=== PATIENT | male | born 1985 | race Caucasian/White ===

== ENCOUNTER 2020-07-07 10:53 | Outpatient (NON) | payer BC, OTHER, SELFPAY ==
[2020-07-07 22:00] LABS: SARS-CoV-2 RNA PCR Negative
== END 2020-07-07 10:54 ==
PROVIDERS: PCP Family Medicine; Visit Provider Nurse Practitioner Family
DX: J02.9 Acute pharyngitis, unspecified (principal); Z20.828 Contact with and (suspected) exposure to other viral communicable diseases
CPT/HCPCS: 87635; C9803; U0003

== ENCOUNTER 2023-05-24 04:18 | Emergency (ER) | payer BC, SELFPAY ==
--- NOTE | ~2023-05-24 | CT_ITS ---
CT of the Abdomen and Pelvis: Indication: Abdominal pain Technique: 2.5 mm axial scans were obtained through the abdomen and pelvis following intravenous adm inistration of 100 cc of Omnipaque 350. Dose reduction technique was used on this scan by utilizing a utomated exposure control and iterative reconstruction technique. The dose-length product (DLP) was 1 033.79 mGy-cm. Findings: Scans through the lung bases are unremarkable. The liver, spleen, pancreas, gallbladder, adrenals and kidneys are within normal limits. No evidence of aortic aneurysm. No lymphadenopathy. No bowel obstruction or bowel wall thickening. There is no evidence to suggest acute appendicitis. Sm all fat-containing umbilical hernia noted. There is suggestion of mild asymmetric enlargement of the right rectus abdominis muscle as compared to the left at the level of the umbilicus. A small isodense intramuscular hematoma is a potential consideration. Images through the pelvis were performed. Urinary bladder unremarkable. No pelvic mass seen. No ascit es. Unilateral right L5 pars interarticularis defect noted. Impression: Mild asymmetric enlargement of the right rectus abdominis muscle as compared to the left at the level of the umbilicus. Small isodense intramuscular hematoma is a potential consideration. Small fat-containing umbilical hernia. Reviewed, dictated and finalized at [facility]. [employer] Impression: Mild asymmetric enlargement of the right rectus abdominis muscle as compared to the left at the level of the umbilicus. Small isodense intramuscular hematoma is a potential consideration. Small fat-containing umbilical hernia.
[2023-05-24 04:21] VITALS: BP 146/96; PULSE 113; RESP 15; TEMP 36.5; O2SAT 97
[2023-05-24 05:09] LABS: Basophils Absolute Auto 0.1 K/mm3 (0.0-0.1); Basophils Percent Auto 0.5 % (0.2-1.2); Eosinophils Absolute Auto 0.3 K/mm3 (0-0.3); Eosinophils Percent Auto 3.1 % (0-4.4); Hemoglobin 16.3 g/dL (14.0-18.0); Immature Granulocyte Absolute 0.04 K/mm3 (0.00-0.031); Immature Granulocyte Percent A 0.4 % (0-0.5); Lymphocytes Absolute Auto 2.97 K/mm3 (0.9-3.2); Lymphocytes Percent Auto 32.4 % (18.3-44.2); Mean Corpuscular HGB Conc 34.7 g/dl (32-36); Mean Corpuscular Volume 92.3 fl (80-100); Mean Platelet Volume 9.2 fl (7.4-10.4); Monocytes Absolute Auto 0.7 K/mm3 (0.1-0.6); Monocytes Percent Auto 7.3 % (2.6-8.5); Neutrophils Absolute Auto 5.2 K/mm3 (1.3-6.7); Neutrophils Percent Auto 56.3 % (45.5-73.1); Platelet Count Result 231 k/mm3 (150-375); Red Blood Count 5.09 M/mm3 (4.6-6.20); Red Cell Distribution Width 12.1 % (11.5-14.5); White Blood Count 9.2 K/mm3 (4.5-10.0)
[2023-05-24 05:11] LABS: Appearance Urine Clear (Clear); Bilirubin Urine Negative (Negative); Blood Urine Negative (Negative); Color Urine Yellow (Yellow); Glucose Urine UA Negative (Negative); Ketones Urine Negative (Negative); Leukocyte Esterase Ur Negative LEU/UL (Negative); Nitrate Urine Negative (Negative); Protein Urine Negative (Negative); Specific Grav Ur 1.015 (1.001-1.035); Urobilinogen Urine 0.2 mg/dL (<2.0); pH Urine 6.5 (5.0-9.0)
[2023-05-24 05:19] LABS: Alanine Aminotransferase 38 U/L (6-50); Albumin Level 4.3 g/dL (3.5-5.1); Alkaline Phosphatase 72 U/L (38-126); Anion Gap 10 mmol/L (8-16); Aspartate Amino Transferase 35 U/L (17-59); Bilirubin,Total 0.8 mg/dL (0.2-1.3); Blood Urea Nitrogen 13 mg/dL (9-20); Calcium 9.3 mg/dL (8.4-10.2); Carbon Dioxide 25 mmol/L (22-30); Chloride 104 mmol/L (98-107); Estimated CRCL calculation 111 ml/min; Estimated Glomerular Filt Rate > 60; Glucose 107 mg/dL (65-110); Lipase 111 U/L (23-300); Sodium 139 mmol/L (137-145)
[2023-05-24 05:32] LABS: Add Urine Microscopic? NO
--- NOTE | 2023-05-24 06:02 | ED.GENADULT ---
HPI - General Adult General Chief complaint: Abdominal Pain Stated complaint: lower right abd pain Time Seen by Provider: 05/24/23 04:36 History of Present Illness HPI narrative: This is a 38-year-old male presenting ED with chief complaint of abdominal pain. Patient said that yesterday he was getting up from the sofa and felt a popping sensation 2 inches to the right of his belly button. Now he is having a sharp pain that is nonradiating 5 out 10 intensity and constant whenever he moves or coughs. He denies fever/chills, nausea, vomiting, diarrhea, or constipation. He is still passing gas. He has no a history of abdominal surgeries. Related Data Home Medications Medication Instructions Recorded Confirmed fluticasone propionate 50 1 spray intranasal DAILY 01/20/22 04/22/23 mcg/actuation nasal spray,suspension Allergies Allergy/AdvReac Type Severity Reaction Status Date / Time No Known Allergies Allergy Verified 04/22/23 07:54 [facility] Past Medical History Medical History BMI 31.0-31.9,adult Family History Family History Father Diabetes mellitus Hypertension Mother Hypertension Sibling Hypertension Social History Social History Smoking status: Never smoker Second hand tobacco smoke exposure: No Alcohol intake: current Drinks per week: 5 Substance use: never Substance use type: does not use Living arrangements: with family Occupation/Education: occupation 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 Gender identity (if verbalized by the patient): Male Exam Narrative: APPEARANCE: No apparent distress. Head: atraumatic. EYES: EOMI, NOSE: Atraumatic NECK: Trachea midline RESPIRATORY: No increased rate of breathing CARDIOVASCULAR: RRR, ABDOMINAL: Abdomen is soft nontender with no guarding or rebound. Over the the area 2 in to the right of the belly button it is mildly more firm and slightly tender. No overlying skin changes. MUSCULOSKELETAl: No obvious deformities NEURO: Alert. Moving 4/4 extremities SKIN:: Warm, dry. Normal color PSYCHIATRIC: Normal affect Course Vital Signs Vital signs: Vital Signs Temperature 97.7 F 05/24/23 04:21 Pulse Rate 113 H 05/24/23 04:21 Respiratory Rate 15 05/24/23 04:21 Blood Pressure 146/96 H 05/24/23 04:21 Pulse Oximetry 97 05/24/23 04:21 Oxygen Delivery Room Air 05/24/23 04:21 Temperature 97.7 F 05/24/23 04:21 Pulse Rate 113 H 05/24/23 04:21 Respiratory Rate 15 05/24/23 04:21 Blood Pressure 146/96 H 05/24/23 04:21 Pulse Oximetry 97 05/24/23 04:21 Oxygen Delivery Room Air 05/24/23 04:21 Medical Decision Making MDM Narrative Medical decision making narrative: -Course: 38-year-old male presenting with a popping sensation and sharp pain over the right side of his belly button. CT abdomen pelvis showed a fat containing umbilical hernia and mild asymmetric swelling of the right rectus abdominus muscles that may represent an isodense hematoma. The patient is resting comfortably and has declined any pain medication. Patient will be discharged with primary care follow-up. He will be given return precautions for severe pain. 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 Small isodense intramuscular hematoma is a potential consideration. Small fat-containing umbilical hernia. CB
[2023-05-24 06:33] VITALS: BP 142/88; PULSE 95; RESP 15; O2SAT 97
== END 2023-05-24 06:34 | disposition home or self-care (01) ==
PROVIDERS: Emergency Provider Emergency Medicine; PCP Family Medicine
DX: S30.1XXA Contusion of abdominal wall, initial encounter (principal); X58.XXXA Exposure to other specified factors, initial encounter
CPT/HCPCS: 36415; 74177; 80053; 81003; 83690; 85025; 99284; Q9967

== ENCOUNTER 2023-06-02 06:34 | Outpatient (CLI) | payer BC, SELFPAY ==
--- NOTE | ~2023-06-02 | CT_ITS ---
EXAMINATION: CT sinus wo con DATE: 06/02/2023 06:56 INDICATION: Chronic sinusitis. TECHNIQUE: Computed tomography (CT) of the paranasal sinuses was performed without intravenous contra st. Iterative reconstruction technique was employed. The dose-length product was 275.33 mGy-cm. COMPARISON: Brain MRI 05/17/2019 FINDINGS: There is mild mucosal thickening in right frontal sinus and extensive mucosal thickening in left frontal sinus. There is total occlusion of the frontal recesses. There is moderate mucosal thic kening in the ethmoid sinuses and left maxillary sinus and mild mucosal thickening in the sphenoid si nuses and right maxillary sinus. Right ostiomeatal unit is patent. There is occlusion of left ostiome atal unit at the hiatus semilunaris. There is mild rightward deviation of the nasal septum. IMPRESSION: 1. Mucosal thickening in the paranasal sinuses with total occlusion of the frontal recesses and left ostiomeatal unit. Reviewed, dictated and finalized at location [facility]. [employer] IMPRESSION: 1. Mucosal thickening in the paranasal sinuses with total occlusion of the fron shirin recesses and left ostiomeatal unit.
== END 2023-06-02 06:35 | disposition home or self-care (01) ==
PROVIDERS: PCP Family Medicine; Visit Provider Otolaryngology
DX: J32.9 Chronic sinusitis, unspecified (principal)
CPT/HCPCS: 70486

== ENCOUNTER 2023-08-23 07:39 | Outpatient (CLI) | payer BC, SELFPAY ==
--- NOTE | 2023-08-23 07:43 | ECHO_ITS ---
Patient Info Name: Shakir Cruz Age: 38 years : 1985 Gender: Male Ht: 71 in Wt: 233 lbs BSA: 2.33 m? BP: 137 / 100 mmHg HR: 71 bpm Exam Date: 08/23/2023 7:59 AM Admit Date: 08/23/2023 Exam Location: Echo Lab Patient Status: Outpatient Exam Type: CA echo doppler color flow Technical Quality: Good Staff Ordering Physician: Haylee Bhardwaj PAC Attending Provider: Haylee Bhardwaj Referring Physician: Lashae TEIXEIRA; Study Info Indications Code Description R55 Syncope and collapse Procedure(s) Complete two-dimensional, color flow and Doppler transthoracic echocardiogram is performed. Summary 1. Complete two-dimensional, color flow and Doppler transthoracic echocardiogram is performed. 2. Left ventricular chamber dimension is normal. 3. Left ventricular systolic function is normal, estimated at 60-65%. 4. The left ventricular diastolic function is normal. 5. E/e' 6 is not elevated. 6. Right atrial chamber dimension is mildly enlarged. 7. There is trace mitral valve regurgitation. Left Ventricle E/e' 6 is not elevated. Left ventricular chamber dimension is normal. Left ventricular systolic function is normal, estimated at 60-65%. The left ventricular diastolic function is normal. Right Ventricle Right ventricular systolic function is normal and with normal TAPSE 2.1 cm. Right ventricular chamber dimension is normal. Left Atria Left atrial chamber dimension is normal. Right Atria Right atrial chamber dimension is mildly enlarged. Aortic Valve The aortic valve is trileaflet. There is no aortic valve stenosis. There is no aortic valve regurgitation. Mitral Valve There is no mitral valve stenosis. There is trace mitral valve regurgitation. Tricuspid Valve There is no tricuspid valve regurgitation. Pulmonic Valve There is no pulmonic regurgitation. Aorta The aortic root size at the sinus of Valsalva is normal. Inferior Vena Cava Normal inferior vena cava with >50% collapse upon inspiration consistent with normal right atrial pressure, 5 mmHg. Pericardium/Pleural There is no pericardial effusion. Ventricles Name Value Normal Name Value Normal LV Dimensions 2D/MM IVS Diastolic Thickness (2D) 1.1 cm 0.6-1.0 LVOT Diameter 2.2 cm LVID Diastole (2D) 4.4 cm 4.2-5.8 LV Mass (2D Cubed) 146.70 g 88.00-224.00 LVIW Diastolic Thickness (2D) 0.9 cm 0.6-1.0 LV Mass Index (2D Cubed) 63 g/m? 49-115 LVID Systole (2D) 3.3 cm 2.5-4.0 Relative Wall Thickness (2D) 0.42 LV Fractional Shortening/Ejection Fraction 2D/MM LV Fractional Shortening (2D) 24 % 25-43 LV Diastolic Volume Index (BP MOD) 38 ml/m? 34-74 LV EF (2D Teicholz) 49 % 52-72 LV Systolic Volume (BP MOD) 34 ml 21-61 LV Diastolic Volume (4C MOD) 100 ml LV Systolic Volume Index (BP MOD) 14 ml/m? 11-31 LV EF (4C MOD) 62 % LV EF (BP MOD) 62 % 52-72 LV Diastolic Volume (2C MOD) 78 ml LV Diastolic Length (4C) 9.2 cm LV EF (2C MOD) 64 % LV Systolic Length (4C) 7.3 cm LV Diastolic Volume (BP MOD) 88 ml 62-150 LV Stroke Volume (4C MOD) 62 ml Atria Name Value Normal Name Value Normal LA Dimensions LA Volume (4C A-L) 44 ml LA Volume (BP A-L) 46 ml RA Dimensions RA Area (4C) 20.3 cm? .18.0 Left Ventricular Outflow Tract Name Value Normal Name Value Normal LVOT 2D LVOT Diameter 2.2 cm LVOT Doppler LVOT Peak Gradient 2 mmHg LVOT Stroke Volume 55 ml LVOT Mean Gradient 1 mmHg LVOT CO 3.7 l/min LVOT VTI 14 cm LVOT CI 1.6 l/min/m? LVOT VTI/AV VTI Ratio 0.7 Aortic Valve Name Value Normal Name Value Normal AV Doppler AV Peak Velocity 95 cm/s AV VTI 20 cm AV Peak Gradient 4 mmHg AV Area (Cont Eq VTI) 2.7 cm? .3.0 AV Mean Gradient 2 mmHg AV Area (Cont Eq Reji) 2.7 cm? AV Regurgitation 2D LVOT Area 3.9 cm? Mitral Valve Name Value Normal Name
--- NOTE | 2023-08-23 07:47 | EST_ITS ---
Patient Info Name: Shakir Cruz Age: 38 years : 1985 Gender: Male Ht: 70 in Wt: 235 lbs BSA: 2.33 m? BP: 125 / 79 mmHg HR: 76 bpm Heart Rhythm: Sinus Rhythm Exam Date: 08/23/2023 8:50 AM Admit Date: 08/23/2023 Exam Location: Echo Lab Patient Status: Outpatient Exam Type: CA stress test treadmill Staff Ordering Physician: Haylee Bhardwaj PAC Attending Provider: Haylee Bhardwaj PAC Exercise Technologist: Linda Altamirano CT Exercise Physician: Trip Ga DO Study Info Indications Code Description I10 Essential (primary) hypertension Procedure(s) A treadmill exercise stress test was performed. Summary 1. 1. Negative Mynor exercise stress test for ischemic ST changes by ECG criteria. 2. 2. Good functional capacity, achieving 12 METs of workload. 3. 3. Appropriate HR response to exercise. 4. 4. Appropriate HR recovery at 1 minute post exercise. 5. 5. No imaging with stress testing. 6. 6. Patient informed of the above results. Stress ECG Details Protocol: Mynor Total Time: 12 min : [address] Seg Deviation: 1.60 mm Angina Score: NoneDuke Score: 4 Total METS: 12.1 Rest HR: 87 bpm Rest Sys BP: 125 mmHg Rest Maloney BP: 79 mmHg Max Pred HR: 183 bpm Target HR: 156 bpm Peak HR: 165 bpm Peak Sys BP: 172 mmHg Peak Maloney BP: 93 mmHg % Max Pred HR:90 % Max RPP: 28,380 bpm*mmHg Termination Reason: Reached target heart rate or workload Cardiac Symptoms: Shortness of breath Resting ECG Sinus rhythm. Stress ECG No ST changes. Arrhythmias None. Stage Duration (min) Speed (mph) Grade (%) HR (bpm) SBP (mmHg ) DBP (mmHg ) METS Symptoms Comments REST 0 min : 55 sec 0.0 0 80 125 79 --- REST 5 min : 52 sec 0.0 0 87 125 79 --- STAGE 1 1 min : 0 sec 1.7 10 97 125 79 --- STAGE 1 2 min : 0 sec 1.7 10 105 125 79 --- STAGE 1 3 min : 0 sec 1.7 10 102 137 56 --- STAGE 2 1 min : 0 sec 2.5 12 108 137 56 --- STAGE 2 2 min : 0 sec 2.5 12 116 129 78 --- STAGE 2 3 min : 0 sec 2.5 12 117 129 78 --- STAGE 3 1 min : 0 sec 3.4 14 124 155 81 --- STAGE 3 2 min : 0 sec 3.4 14 133 155 81 --- STAGE 3 3 min : 0 sec 3.4 14 138 163 92 --- STAGE 4 1 min : 0 sec 4.2 16 147 163 92 --- STAGE 4 2 min : 0 sec 4.2 16 159 172 93 --- STAGE 4 3 min : 0 sec 5.0 18 165 172 93 --- RECOVERY 1 min : 0 sec 0.0 0 142 166 75 --- RECOVERY 2 min : 0 sec 0.0 0 117 166 75 --- RECOVERY 2 min : 55 sec 0.0 0 112 144 76 --- Report Signatures Electronically signed by Trip Ga DO on 2023 09 : 33 [facility]Che
== END 2023-08-23 07:40 | disposition home or self-care (01) ==
LOC: ANHCARD 07:41
PROVIDERS: PCP Family Medicine; Visit Provider Physician Assistant Medical
DX: R55 Syncope and collapse (principal); E78.5 Hyperlipidemia, unspecified; I10 Essential (primary) hypertension
CPT/HCPCS: 93017; 93306